=== PATIENT | male | born 1970 | race Caucasian/White ===

== ENCOUNTER 2022-12-30 11:46 | Outpatient (CLI) | payer BC, SELFPAY ==
[2022-12-30 12:50] LABS: Cholesterol* 214 mg/dL (90-199)
[2022-12-30 12:51] LABS: Glucose* 103 mg/dL (60-115); HDL Cholesterol* 65 mg/dL (>=40); LDL Cholesterol Calculated 116 mg/dL (<100); Triglycerides* 166 mg/dL (40-149)
== END 2022-12-30 11:47 | disposition home or self-care (01) ==
PROVIDERS: PCP Family Medicine; Visit Provider Family Medicine
DX: Z13.1 Encounter for screening for diabetes mellitus (principal); Z13.6 Encounter for screening for cardiovascular disorders
CPT/HCPCS: 80061; 82947

== ENCOUNTER 2023-12-03 14:19 | Outpatient (CLI) | payer BC, SELFPAY | END 2023-12-03 14:20 | disposition home or self-care (01) | PROVIDERS: PCP Family Medicine; Visit Provider Family Medicine | DX: Z00.00 Encounter for general adult medical examination without abnormal findings (principal); E78.5 Hyperlipidemia, unspecified; Z13.1 Encounter for screening for diabetes mellitus; Z12.5 Encounter for screening for malignant neoplasm of prostate; Z80.7 Family history of other malignant neoplasms of lymphoid, hematopoietic and related tissues | CPT/HCPCS: 80061; 82947; G0103 ==